=== PATIENT | female | born 1980 | race Two or more races ===

== ENCOUNTER 2023-12-22 13:32 | Emergency (ER) | payer SELFPAY ==
[~2023-12-22] VITALS: Ht 160 cm; Wt 79.5 kg
[2023-12-22 14:00] VITALS: BP 125/72; PULSE 101; RESP 18; O2SAT 96
[2023-12-22 18:42] LABS: Urine Bacteria FEW /hpf (None Seen); Urine Blood Negative /uL (Negative); Urine Clarity Clear (Clear); Urine Color Yellow (Yellow); Urine Hyaline Cast FEW /lpf (0 - 2); Urine Protein, UAD Negative (Negative); Urine Specific Gravity 1.027 (1.001-1.035); Urine Urobilinogen Normal (Negative); Urine WBC 3 /hpf (0 - 5)
== END 2023-12-22 19:32 | disposition left against medical advice (07) ==
LOC: ER 13:32
DX: O20.0 Threatened abortion (principal); R10.2 Pelvic and perineal pain; F17.210 Nicotine dependence, cigarettes, uncomplicated; Z3A.17 17 weeks gestation of pregnancy; Z98.890 Other specified postprocedural states
CPT/HCPCS: 36415; 76805; 76817; 81001; 84702

== ENCOUNTER 2025-03-30 21:51 | Emergency (ER) | payer SELFPAY ==
[2025-03-31] MEDS ORDERED: CLIN1CAP70 PO (22:59)
[2025-03-31] MEDS ORDERED: IBUP-1456 PO (23:00)
== END 2025-03-31 00:28 | disposition left against medical advice (07) ==
LOC: ER 21:51
DX: R68.89 Other general symptoms and signs (principal); Z53.21 Procedure and treatment not carried out due to patient leaving prior to being seen by health care provider

== ENCOUNTER 2025-03-31 19:52 | Emergency (ER) | payer SELFPAY ==
[~2025-03-31] VITALS: Ht 160 cm; Wt 89.9 kg
--- NOTE | 2025-03-31 21:18 | DVH ---
EXAM: XY L HAND 3V XRAY CLINICAL HISTORY: DISTAL MIDDLE FINGER INJURY COMPARISON: None TECHNIQUE: XY L HAND 3V XRAY Findings/Impression: 3 views of the left hand. There is no evidence of an acute fracture, dislocation, blastic, or lytic lesions. No radiopaque foreign bodies. Moderate soft tissue edema of the distal 3rd digit.
[2025-03-31 22:01] VITALS: BP 131/99; PULSE 87; RESP 18; TEMP 97.9; O2SAT 99
[2025-03-31] MEDS ORDERED: CLIN1CAP70 PO (22:59)
[2025-03-31] MEDS ORDERED: IBUP-1456 PO (23:00)
--- NOTE | 2025-03-31 23:00 | ED.PDOC ---
History of Present Illness(SKN HPI Comments PATIENT C/O LEFT MIDDLE FINGER PAIN, THOUGHT IT WAS AN INGROWN NAIL. DENIES FEVER, CHILLS, N/V WEAKNESS OR NUMBNESS. 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 History: Denies all ANIMAL ASSISTANT Hx Family History Family History: Reviewed,noncontributory to illness Social History Smoker: Cigarettes Alcohol: Denies ETOH Use Drugs: Denies Drug Use Lives In: Home Constitutional: denies: chills, diaphoresis, fatigue, fever, malaise, sweats, weakness, others EENTM: denies: blurred vision, double vision, ear bleeding, ear discharge, ear drainage, ear pain, ear ringing, eye pain, eye redness, hearing loss, mouth pain, mouth swelling, nasal discharge, nose bleeding, nose congestion, nose pain, photophobia, tearing, throat pain, throat swelling, voice changes, others Respiratory: denies: cough, hemoptysis, orthopnea, SOB at rest, shortness of breath, SOB with excertion, stridor, wheezing, others Cardiovascular: denies: chest pain, dizzy spells, diaphoresis, Dyspnea on exertion, edema, irregular heart beat, left arm pain, lightheadedness, palpita tions, PND, syncope, others Gastrointestinal: denies: abdomen distended, abdominal pain, blood streaked angel wels, constipated, diarrhea, dysphagia, difficulty swallowing, hematemesis, melena, nausea, poor appetite, poor fluid intake, rectal bleeding, rectal pain, vomiting, others Genitourinary: denies: abnormal vagina bleeding, burning, dyspareunia, dysuria, flank pain, frequency, hematuria, incontinence, pain, , vagina discharge, urgency, others Neurological: denies: dizziness, fainting, headache, left sided numbness, left sided weakness, numbness, paresthesia, pre-existing deficit, right sided numbness, right sided weakness, seizure, speech problems, tingling, tremors, weakness, others Musculoskeletal: denies: back pain, gout, joint pain, joint swelling, muscle pain, muscle stiffness, neck pain, others Integumetry: reports: wounds (Left middle finger); denies: bruises, change in color, change in hair/nails, dryness, laceration, lesions, lumps, rash, others Allergic/Immunocompromised: denies: Difficulty Healing, Frequent Infections, Hives, Itching, others Hematologic/Lymphatic: denies: anemia, blood clots, easy bleeding, easy bruising, swollen glands, others Endocrine: denies: excessive hunger, excessive sweating, excessive thirst, excessive urination, flushing, intolerance to cold, intolerance to heat, unexpla ined weight gain, unexplained weight loss, others Psychiatric: denies: anxiety, bipolar disorder, depression, hopeless, panic disorder, schizophrenia, sleepless, suicidal, others Physical Exam General Appearance: No Apparent Distress, Normal HEENT: Pharynx Normal Neck: Full Range of Motion, Non-Tender Respiratory: Lungs Clear, No Respiratory Distress, Normal Breath Sounds Cardiovascular: No Murmur, Normal Peripheral Pulses, Regular Rate/Rhythm Breast Exam: Deferred Gastrointestinal: Non Tender, Soft Genitalia: Deferred Pelvic: Deferred Rectal: Deferred Extremities: Normal capillary refill, Normal range of motion, Non-tender, No pedal edema Musculoskeletal : Apperance: Normal Neurologic: Alert, No Motor Deficits, Normal Affect, Normal Mood, No Sensory Deficits Cerebellar Function: Normal Reflexes: Normal Skin: Dry, Normal Color, Warm, Wounds (Left middle finger distal phalanx m oderate edema, erythema, fluctuant cap refill less than 3 seconds strength sensory motion intact) Lymphatic: No Adenopathy Was a procedure done? Was a procedure done?: Yes Sedation Sedation?: No Informed consent obtained: Yes Incision and Drainage Incision and Drainage: Abscess Anesthetic: Lidocaine, Other (Digital block of left 3rd finger) Preparation: Betadine Incision and Wound: Pus, Blood, Amount (3mls) Informed consent obtained: Yes Risks/benefits/alt described: Yes Notes Patient tolerated well minimal blood loss reports improvement in pain and pressure Differential Diagnosis (INTG) Differential Diagnosis: Cellulitis, Hematoma, Puncture Wound Differential Diagnosis: Abscess X-Ray, Labs, Meds, VS Vital Signs Date Time Temp Pulse Resp B/P (MAP) Pulse Ox O2 Delivery O2 Flow Rate FiO2 03/31/25 22:01 Room Air* 0 21 03/31/25 22:01 97.9 87 18 131/99 (110) 99 97.9 03/31/25 20:05 98.4 102 16 119/96 (104) 97 98.4 X-Ray, Labs, Meds, VS Comment See procedure note. We will script trial of ibuprofen 800 mg and clindamycin. Advised to take medications as prescribed side effects discussed. Advised to take a daily probiotic or yogurt while on antibiotics. Advised to follow up with her PCP or urgent care or back here in 2 days for re-evaluation of her finger. Advised on ER return precautions patient indicates understanding and agrees with discharge plan of care. Time of 1ST Reevaluation: 20:20 Reevaluation 1ST: Unchanged Time of 2ND Reevaluation: 22:54 Reevaluation 2ND: Improved Patient Education/Counseling: Diagnosis, Treatment, Prognosis, Need For Follow Up Family Education/Counseling: Diagnosis, Treatment, Prognosis, Need For Follow Up Departure 1 Departure Time of Disposition: 22:58 Impression: Primary Impression: Felon of finger of left hand Disposition: 01 HOME / SELF CARE / HOMELESS Condition: Stable e-Prescriptions Ibuprofen (Ibuprofen) 800 Mg Tab 800 MG PO Q8HP PRN for 5 Days, #15 TAB Prov: KATIE NAVARRO 03/31/25 Clindamycin Hcl (Clindamycin Hcl) 300 Mg Cap 300 MG PO QID for 7 Days, #28 CAP Prov: KATIE NAVARRO 03/31/25 Discharged With: Significant Other Critical Care Note Critical Care Time?: No Stability Stability form required: No KATIE NAVARRO Mar 31, 2025 23:00
[2025-03-31] MEDS: LIDOCAINE 1% HCL (LOCAL ANESTH.) INJ 20ML MDV ID ONE (23:36)
== END 2025-03-31 23:45 | disposition home or self-care (01) ==
LOC: ER 19:52
DX: L03.012 Cellulitis of left finger (principal); F17.210 Nicotine dependence, cigarettes, uncomplicated
CPT/HCPCS: 26010; 73130; 99283; J2003

== ENCOUNTER 2025-04-08 22:13 | Emergency (ER) | payer SELFPAY ==
[~2025-04-08] VITALS: Ht 160 cm; Wt 81.6 kg
[~2025-04-08 22:13] MED LIST: CLIN1CAP70 PO
[2025-04-08 23:03] VITALS: PULSE 72; RESP 18; O2SAT 97
[2025-04-08] MEDS ORDERED: ONDANSETRON HCL 4 MG/2 ML VIAL IV ONE (23:30)
[2025-04-08] MEDS ORDERED: MORPHINE SULFATE 4 MG/ML SYR/VIAL IV ONE (23:30)
[2025-04-09 01:39] VITALS: BP 107/61; PULSE 70; RESP 18; TEMP 98.1; O2SAT 96
--- NOTE | 2025-04-09 02:07 | DVH ---
INDICATION: vag bleed TECHNIQUE: Multiple real-time grayscale transabdominal sonographic images along with color and duplex Doppler of the uterus and ovaries were obtained. COMPARISON: None FINDINGS: The uterus measures 9.2 x 6.0 x 5.6 cm. The endometrial stripe measures 1.1 cm. Ill-defined heterogeneous structure measuring 2.3 x 1.5 cm within the uterus. No identifiable gestational sac, y olk sac, pole or heart tones. Right ovary measures 2.9 x 1.6 x 1.5 cm with normal Doppler color flow. Left ovary measures 2.5 x 1.4 x 1.1 cm with normal Doppler color flow. IMPRESSION: 1. Ill-defined heterogeneous structure within the uterus without identifiable gestational sac, yolk s ac, pole or heart tones. Suspected retained products of conception. Attention to close mo nitoring and short-term follow-up for resolution.
--- NOTE | 2025-04-09 02:20 | ED.PDOC ---
MAXILLOFACIAL PROSTHETICS DENTIST HPI Comments 44-year-old female complaining of vaginal bleeding and abdominal cramping. Patient states she has , took test one week ago. States her last menstrual was 02/14/2025. Patient reports being . States last live was a month ago. States she did notice some light spotting yesterday and then today had more significant spotting clotting and abdominal cramping. 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 History: Denies all MULTIPLE CUT OFF SAW OPERATOR Hx Family History Family History: Reviewed,noncontributory to illness Social History Smoker: Cigarettes Alcohol: Denies ETOH Use Drugs: Denies Drug Use Lives In: Home Constitutional: denies: chills, diaphoresis, fatigue, fever, malaise, sweats, weakness, others EENTM: denies: blurred vision, double vision, ear bleeding, ear discharge, ear drainage, ear pain, ear ringing, eye pain, eye redness, hearing loss, mouth pain, mouth swelling, nasal discharge, nose bleeding, nose congestion, nose pain, photophobia, tearing, throat pain, throat swelling, voice changes, others Respiratory: denies: cough, hemoptysis, orthopnea, SOB at rest, shortness of breath, SOB with excertion, stridor, wheezing, others Cardiovascular: denies: chest pain, dizzy spells, diaphoresis, Dyspnea on exertion, edema, irregular heart beat, left arm pain, lightheadedness, palpitations, PND, syncope, others Gastrointestinal: denies: abdomen distended, abdominal pain, blood streaked bowels, constipated, diarrhea, dysphagia, difficulty swallowing, hematemesis, melena, nausea, poor appetite, poor fluid intake, rectal bleeding, rectal pain, vomiting, others Genitourinary: reports: abnormal vagina bleeding; denies: burning, dyspareunia, dysuria, flank pain, frequency, hematuria, incontinence, pain, , vagina discharge, urgency, others Neurological: denies: dizziness, fainting, headache, left sided numbness, left sided weakness, numbness, paresthesia, pre-existing deficit, right sided numbness, right sided weakness, seizure, speech problems, tingling, tremors, weakness, others Musculoskeletal: denies: back pain, gout, joint pain, joint swelling, muscle pain, muscle stiffness, neck pain, others Integumetry: denies: bruises, change in color, change in hair/nails, dryness, laceration, lesions, lumps, rash, wounds, others Allergic/Immunocompromised: denies: Difficulty Healing, Frequent Infections, Hives, Itching, others Physical Exam General Appearance: No Apparent Distress, Normal HEENT: Normal ENT Inspection, Pharynx Normal, TMs Normal Neck: Full Range of Motion, Non-Tender, Normal, Normal Inspection Respiratory: Chest Non-Tender, Lungs Clear, No Accessory Muscle Use, No Respiratory Distress, Normal Breath Sounds Cardiovascular: No Edema, No JVD, No Murmur, No Gallop, Normal Peripheral Pulses, Regular Rate/Rhythm Breast Exam: Deferred Gastrointestinal: No Organomegaly, Non Tender, No Pulsatile Mass, Normal Bowel Sounds, Soft Genitalia: Deferred Pelvic: Deferred Rectal: Deferred Extremities: No calf tenderness, Normal capillary refill, Normal inspection, Normal range of motion, Non-tender, No pedal edema Musculoskeletal : Apperance: Normal Neurologic: Alert, trade economist II-XII nml as Tested, No Motor Deficits, Normal Affect, Normal Mood, No Sensory Deficits Cerebellar Function: Normal Reflexes: Normal Skin: Dry, Normal Color, Warm Lymphatic: No Adenopathy Was a procedure done? Was a procedure done?: No Differential Diagnosis (MULTIPLE CUT OFF SAW OPERATOR) Vaginal Bleeding: - Complete, - Incomplete, - Inevitable, - Missed, Dysmenorrhea, Menorrhagia X-Ray, Labs, Meds, VS Vital Signs Date Time Temp Pulse Resp B/P (MAP) Pulse Ox O2 Delivery O2 Flow Rate FiO2 04/09/25 01:39 98.1 70 18 107/61 (76) 96 98.1 04/08/25 23:03 98.1 84 18 102/52 (69) 97 98.1 04/08/25 23:03 72 18 97 Room Air* 0 21 04/08/25 22:22 97.4 84 16 112/70 (84) 100 97.4 Lab Test 04/08/25 22:58 Range/Units Beta HCG, Quantitative 46214.6 H 1.5-4.2 mIU/mL X-Ray, Labs, Meds, VS Comment Pelvic ultrasound: IMPRESSION: 1. Ill-defined heterogeneous structure within the uterus without identifiable gestational sac, yolk sac, pole or heart tones. Suspected retained products of conception. Attention to close monitoring and short-term follow-up for resolution. Laboratory: Labs reviewed and interpreted by this provider. No significant abnormalities noted. Patient has prior medical visits reviewed. Med reconciliation performed Vital signs reviewed Time of 1ST Reevaluation: 02:20 Reevaluation 1ST: Unchanged Patient Education/Counseling: Diagnosis, Treatment, Need For Follow Up (Follow up in two days for repeat ultrasound and beta-hCG) Family Education/Counseling: Diagnosis Departure 1 Departure Time of Disposition: 02:19 Impression: Primary Impression: Threatened Disposition: 01 HOME / SELF CARE / HOMELESS Condition: Fair Discharged With: Self Comments Follow up in two days for repeat ultrasound and beta hCG Critical Care Note Critical Care Time?: No Stability Stability form required: No Heart Score Heart Score: Heart Score Response (Comments) Value History N/A 0 EKG N/A 0 Age N/A 0 Risk Factors N/A 0 Troponin N/A 0 Total 0 CURTIS IBARRA Apr 09, 2025 02:20
== END 2025-04-09 02:58 | disposition home or self-care (01) ==
LOC: EDSEX 22:13 → ER 22:13 → EDBD 22:13 → ER 04-09 02:44
DX: O20.0 Threatened abortion (principal); Z3A.00 Weeks of gestation of pregnancy not specified; F17.210 Nicotine dependence, cigarettes, uncomplicated
CPT/HCPCS: 36415; 76801; 76817; 84702

== ENCOUNTER → 2025-07-17 | Emergency (ER) | payer MEDICAID ==
[~2025-07-17] VITALS: Ht 157.5 cm; Wt 88.7 kg
[2025-07-17 05:54] VITALS: BP 112/63; PULSE 72; RESP 18; TEMP 97.7; O2SAT 97
--- NOTE | 2025-07-17 05:57 | ECG ---
[facility] Test Date: 2025-07-17 Test Time: 05:50:49 Pat Name: DUY VIEIRA Department: ED Room: Gender: F Negative Retoucher: CARON : 1980 Requested By: LEONORA OLSEN Order Number: [id number] Reading MD: Measurements Intervals [place] Rate: 56 P: 36 HI: 145 QRS: 50 QRSD: 84 T: 47 QT: 405 QTc: 391 Interpretive Statements Sinus rhythm Probable left atrial enlargement Borderline T abnormalities, anterior leads Please click the below link to view image of tracing.
--- NOTE | 2025-07-17 06:49 | DVH ---
CHEST RADIOGRAPH Indication: chest pain Technique: Single frontal view of the chest was obtained COMPARISON: XR CHEST 1 VIEW on DOS: 01/02/25 FINDINGS: Lines and Tubes: None Lungs: Clear Pleura: No effusion. No pneumothorax. Cardiomediastinal contours: Unremarkable Bones: Unremarkable IMPRESSION: 1. No acute disease.
== END | disposition left against medical advice (07) ==
LOC: ER 05:42
DX: R07.9 Chest pain, unspecified (principal); Z53.21 Procedure and treatment not carried out due to patient leaving prior to being seen by health care provider
CPT/HCPCS: 71045; 93005

== ENCOUNTER 2025-07-23 01:31 | Emergency (ER) | payer MEDICAID ==
[~2025-07-23] VITALS: Ht 167.6 cm; Wt 77.3 kg
--- NOTE | 2025-07-23 01:56 | ED.PDOC ---
GI ASSESSMENT HPI Comments 44-year-old female who came to ER for abdominal pain. Patient has a history of gallstones, for the past 3-4 hour, has been experiencing right upper quadrant abdominal pain, constant, radiating to her back. Like she is having a gallstone flare up. Denies any nausea or vomiting. 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 History: 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 LINING 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 History: Denies all BLINDSTITCH LINING FELLER Hx Family History Family History: Reviewed,noncontributory to illness Social History Smoker: Non-Smoker Alcohol: Denies ETOH Use Drugs: Denies Drug Use Lives In: Home Constitutional: denies: chills, diaphoresis, fatigue, fever, malaise, sweats, weakness, others EENTM: denies: blurred vision, double vision, ear bleeding, ear discharge, ear drainage, ear pain, ear ringing, eye pain, eye redness, hearing loss, mouth pain, mouth swelling, nasal discharge, nose bleeding, nose congestion, nose pain, photophobia, tearing, throat pain, throat swelling, voice changes, others Respiratory: denies: cough, hemoptysis, orthopnea, SOB at rest, shortness of breath, SOB with excertion, stridor, wheezing, others Cardiovascular: denies: chest pain, dizzy spells, diaphoresis, Dyspnea on exertion, edema, irregular heart beat, left arm pain, lightheadedness, palpitations, PND, syncope, others Gastrointestinal: reports: abdominal pain; denies: abdomen distended, blood streaked bowels, constipated, diarrhea, dysphagia, difficulty swallowing, hematemesis, melena, nausea, poor appetite, poor fluid intake, rectal bleeding, rectal pain, vomiting, others Genitourinary: denies: abnormal vagina bleeding, burning, dyspareunia, dysuria, flank pain, frequency, hematuria, incontinence, pain, , vagina discharge, urgency, others Neurological: denies: dizziness, fainting, headache, left sided numbness, left sided weakness, numbness, paresthesia, pre-existing deficit, right sided numbness, right sided weakness, seizure, speech problems, tingling, tremors, weakness, others Musculoskeletal: reports: back pain; denies: gout, joint pain, joint swelling, muscle pain, muscle stiffness, neck pain, others Integumetry: denies: bruises, change in color, change in hair/nails, dryness, laceration, lesions, lumps, rash, wounds, others Allergic/Immunocompromised: denies: Difficulty Healing, Frequent Infections, Hives, Itching, others Hematologic/Lymphatic: denies: anemia, blood clots, easy bleeding, easy bruising, swollen glands, others Endocrine: denies: excessive hunger, excessive sweating, excessive thirst, excessive urination, flushing, intolerance to cold, intolerance to heat, u nexplained weight gain, unexplained weight loss, others Psychiatric: denies: anxiety, bipolar disorder, depression, hopeless, panic disorder, schizophrenia, sleepless, suicidal, others Physical Exam General Appearance: No Apparent Distress, Normal HEENT: Normal ENT Inspection, Pharynx Normal, TMs Normal Neck: Full Range of Motion, Non-Tender, Normal, Normal Inspection Respiratory: Chest Non-Tender, Lungs Clear, No Accessory Muscle Use, No Respiratory Distress, Normal Breath Sounds Cardiovascular: No Edema, No JVD, No Murmur, No Gallop, Normal Peripheral Pulses, Regular Rate/Rhythm Breast Exam: Deferred Gastrointestinal: No Organomegaly, Non Tender, No Pulsatile Mass, Normal Bowel Sounds, Soft Genitalia: Deferred Pelvic: Deferred Rectal: Deferred Extremities: No calf tenderness, Normal capillary refill, Normal inspection, Normal range of motion, Non-tender, No pedal edema Musculoskeletal : Apperance: Normal Neurologic: Alert, precision machining instructor II-XII nml as Tested, No Motor Deficits, Normal Affect, Normal Mood, No Sensory Deficits Cerebellar Function: Normal Reflexes: Normal Skin: Dry, Normal Color, Warm Lymphatic: No Adenopathy Was a procedure done? Was a procedure done?: No GI differential Dx Differential Diagnosis: Cholecystitis, Diverticular disease, Gastritis/PUD, Gastroenteritis, GI hemorrhage, Pancreatitis, UTI, Urolithiasis X-Ray, Labs, Meds, VS Vital Signs Date Time Temp Pulse Resp B/P (MAP) Pulse Ox O2 Delivery O2 Flow Rate FiO2 07/23/25 04:46 98.2 59 18 119/79 (92) 100 98.2 07/23/25 04:46 Room Air* 0 21 07/23/25 01:35 98.4 53 20 117/73 97 98.4 Lab Test 07/23/25 02:48 Range/Units White Blood Count 6.6 4.4-10.8 10^3/uL Red Blood Count 4.93 4.0-5.20 10^6/uL Hemoglobin 14.7 12.2-16.2 g/dL Hematocrit 42.9 36.0-46.0 % Mean Corpuscular Volume 87.1 80.0-100.0 fL Mean Corpuscular Hemoglobin 29.9 28.0-32.0 pg Mean Corpuscular Hemoglobin Concent 34.3 32.0-36.0 g/dL Red Cell Distribution Width 13.2 11.8-14.3 % Platelet Count 262 140-450 10^3/uL Mean Platelet Volume 7.8 6.9-10.8 fL Neutrophils (%) (Auto) 70.1 37.0-80.0 % Lymphocytes (%) (Auto) 19.9 10.0-50.0 % Monocytes (%) (Auto) 8.5 0.0-12.0 % Eosinophils (%) (Auto) 1.1 0.0-7.0 % Basophils (%) (Auto) 0.4 0.0-2.0 % Neutrophils # (Auto) 4.6 1.6-8.6 10 ^3/uL Lymphocytes # (Auto) 1.3 0.4-5.4 10 ^3/uL Monocytes # (Auto) 0.6 0-1.3 10 ^3/uL Eosinophils # (Auto) 0.1 0-0.8 10 ^3/uL Basophils # (Auto) 0 0-0.2 10 ^3/uL Nucleated Red Blood Cells 0.1 % Sodium Level 142 136-145 mmol/L Potassium Level 4.1 3.5-5.1 mmol/L Chloride Level 106 98-107 mmol/L Carbon Dioxide Level 27 20-31 mmol/L Anion Gap 9 5-15 Blood Urea Nitrogen 7 L 9-23 mg/dL Creatinine 0.70 0.550-1.02 mg/dL Glomerular Filtration Rate Calc 111 >90 mL/min BUN/Creatinine Ratio 10.0 10.0-20.0 Serum Glucose 106 74-106 mg/dL Calcium Level 9.4 8.7-10.4 mg/dL Total Bilirubin 0.3 0.2-1.0 mg/dL Aspartate Amino Transferase (AST) 58 H 13-40 U/L Alanine Aminotransferase (ALT) 26 7-40 U/L Alkaline Phosphatase 101 46-116 U/L Total Protein 7.6 5.7-8.2 g/dL Albumin 4.6 3.2-4.8 g/dL Lipase 33 12-53 U/L Current Medications Medications (Trade) Dose Ordered Sig/Edmund Route Start Time Stop Time Status Last Admin Ondansetron HCl (Zofran Po) 4 mg ONCE ONCE PO 07/23/25 02:00 07/23/25 02:01 DC 07/23/25 04:54 Dicyclomine HCl (Bentyl Capsule) 20 mg ONCE ONCE PO 07/23/25 02:00 07/23/25 02:01 DC 07/23/25 04:54 Acetaminophen/ Hydrocodone Bitart ([place] 10/325MG Tab) 1 tab ONCE ONCE PO 07/23/25 02:00 07/23/25 02:01 DC 07/23/25 04:54 PROCEDURE(s): GBUS - GALLBLADDER REASON: RUQ pain ORDER NUMBER(s): [id number], ACCESSION NUMBER(s): [id number] INDICATION: RUQ pain TECHNIQUE: Multiple real-time sonographic images were obtained of the right upper quadrant. COMPARISON: None FINDINGS: The liver demonstrates normal homogeneous echotexture without focal mass lesions. The liver measures 17.2 cm. Normal hepatopetal portal venous flow identified. No evidence of pleural effusion or abdominal ascites. There is no intrahepatic or extrahepatic ductal dilatation. The common duct measures 0.5 cm. Mobile gallstones near the neck of the gallbladder. The gallbladder wall measures 0.3 cm and is within normal limits. Negative sonographic matias's sign. The right kidney measures 9.3 cm. The right kidney is normal in contour, size, and shape. The echogenicity is normal. There is no hydronephrosis. 1.4 cm anechoic cyst within the superior pole. The pancreas is not well visualized due to overlying bowel gas. IMPRESSION: 1. Cholelithiasis without sonographic evidence of acute cholecystitis. 2. Hepatomegaly. 3. Simple appearing right superior pole renal cortical cyst. Time of 1ST Reevaluation: 01:53 Reevaluation 1ST: Unchanged Patient Education/Counseling: Diagnosis, Treatment Family Education/Counseling: No Family Present SEPSIS Sepsis Screen Date sepsis recognized/suspect: Jul 23, 2025 Time Sepsis recognized/suspect: 134 Recent Procedure: No On Antibiotic Therapy: No Respiratory Rate >20: No Heart Rate >90: No Temp<36 C (96.8 F) or >38.3 C: No SBP <90 or MAP <65 mmHG: No New Acute Mental Status Change: No Is the patient on CPAP, BIPAP,: No Physician Orders Urinalysis (07/23/25 01:54) Gallbladder (07/23/25 01:54) Test, Urine (07/23/25 01:54) Vital Signs Date Time Temp Pulse Resp B/P (MAP) Pulse Ox O2 Delivery O2 Flow Rate FiO2 07/23/25 04:46 98.2 59 18 119/79 (92) 100 98.2 07/23/25 04:46 Room Air* 0 21 07/23/25 01:35 98.4 53 20 117/73 97 98.4 Laboratory Tests Test 07/23/25 02:48 White Blood Count 6.6 10^3/uL (4.4-10.8) Medications Medications Dose Ordered Sig/Edmund Route Start Time Stop Time Status Last Admin Dose Admin Acetaminophen/ Hydrocodone Bitart 1 tab ONCE ONCE PO 07/23/25 02:00 07/23/25 02:01 DC 07/23/25 04:54 Dicyclomine HCl 20 mg ONCE ONCE PO 07/23/25 02:00 07/23/25 02:01 DC 07/23/25 04:54 Ondansetron HCl 4 mg ONCE ONCE PO 07/23/25 02:00 07/23/25 02:01 DC 07/23/25 04:54 Departure 1 Departure Time of Disposition: 03:30 Impression: Primary Impression: Biliary colic Disposition: 01 HOME / SELF CARE / HOMELESS Condition: Stable e-Prescriptions Gabapentin (Once-Daily) (Gabapentin) 300 Mg Tab 300 MG PO Q6HP PRN, #60 TAB Prov: LEONORA OLSEN MD 07/23/25 Dicyclomine Hcl (BENTYL CAPSULE) 10 Mg Cp 1 CAP PO Q6HPRN PRN, #100 CAP 3 Refills Prov: LEONORA OLSEN MD 07/23/25 Discharged With: Self Critical Care Note Critical Care Time?: No Stability Stability form required: No Heart Score Heart Score: Heart Score Response (Comments) Value History N/A 0 EKG N/A 0 Age N/A 0 Risk Factors N/A 0 Troponin N/A 0 Total 0 I personally scribed for LEONORA OLSEN MD ([email or web address]) on 07/23/25 at 01:56. Electronically submitted by Elian Min ([email or web address]). I personally scribed for LEONORA OLSEN MD ([email or web address]) on 07/23/25 at 02:55. Electronically submitted by Eilan Min ([email or web address]). LEONORA OLSEN MD Jul 23, 2025 01:56
--- NOTE | 2025-07-23 02:49 | DVH ---
INDICATION: RUQ pain TECHNIQUE: Multiple real-time sonographic images were obtained of the right upper quadrant. COMPARISON: None FINDINGS: The liver demonstrates normal homogeneous echotexture without focal mass lesions. The liver measures 17.2 cm. Normal hepatopetal portal venous flow identified. No evidence of pleural effusion or abdominal ascites. There is no intrahepatic or extrahepatic ductal dilatation. The common duct measures 0.5 cm. Mobile gallstones near the neck of the gallbladder. The gallbladder wall measures 0.3 cm and is withi n normal limits. Negative sonographic matias's sign. The right kidney measures 9.3 cm. The right kidney is normal in contour, size, and shape. The echogen icity is normal. There is no hydronephrosis. 1.4 cm anechoic cyst within the superior pole. The pancreas is not well visualized due to overlying bowel gas. IMPRESSION: 1. Cholelithiasis without sonographic evidence of acute cholecystitis. 2. Hepatomegaly. 3. Simple appearing right superior pole renal cortical cyst.
[2025-07-23 03:02] LABS: Hematocrit 42.9 % (36.0-46.0); Hemoglobin 14.7 g/dL (12.2-16.2); Mean Corpuscular Hemoglobin 29.9 pg (28.0-32.0); Mean Corpuscular Volume 87.1 fL (80.0-100.0); Nucleated Red Blood Cells % 0.1 %
[2025-07-23 03:26] LABS: Alanine Aminotransferase 26 U/L (7-40); Albumin 4.6 g/dL (3.2-4.8); Alkaline Phosphatase 101 U/L (46-116); BUN/Creatinine Ratio 10.0 (10.0-20.0); Calcium 9.4 mg/dL (8.7-10.4); Carbon Dioxide 27 mmol/L (20-31); Glucose 106 mg/dL (74-106); Lipase 33 U/L (12-53); Total Protein 7.6 g/dL (5.7-8.2)
[2025-07-23 03:27] LABS: Bilirubin, Total 0.3 mg/dL (0.2-1.0); Blood Urea Nitrogen 7 mg/dL (9-23)
[2025-07-23 03:37] LABS: Anion Gap 9 (5-15); Chloride 106 mmol/L (98-107); Potassium 4.1 mmol/L (3.5-5.1); Sodium 142 mmol/L (136-145)
[2025-07-23] MEDS ORDERED: DICY10CA PO (03:51)
[2025-07-23] MEDS ORDERED: GABA300T4 PO (03:51)
[2025-07-23 04:46] VITALS: BP 119/79; PULSE 59; RESP 18; TEMP 98.2; O2SAT 100
[2025-07-23] MEDS: DICYCLOMINE HCL 10 MG CAP PO ONE (04:54)
[2025-07-23] MEDS: HYDROcodone-ACET 10/325MG TAB PO ONE (04:54)
[2025-07-23] MEDS: ONDANSETRON ODT 4 MG TAB PO ONE (04:54)
== END 2025-07-23 03:51 | disposition home or self-care (01) ==
LOC: EDBD 01:31 → ER 01:31
DX: K80.51 Calculus of bile duct without cholangitis or cholecystitis with obstruction (principal); Z79.899 Other long term (current) drug therapy
CPT/HCPCS: 36415; 76705; 80053; 83690; 85025; 99284; J0500; Q0162